=== PATIENT | female | born 1950 | race Caucasian/White ===

== ENCOUNTER 2025-07-10 19:11 | Inpatient (IN) | payer MEDICARE, OTHER, SELFPAY ==
[2025-07-10] VITALS (9 sets, daily range): BP systolic 110–159; BP diastolic 58–81; BMI 26.8
[2025-07-10] MEDS: MORPHINE SULFATE 2 MG IV ×2 (15:28→21:32)
--- NOTE | 2025-07-10 15:31 | ED.GENMED ---
History of Present Illness
General
Chief Complaint: Fall
Source: patient
Exam Limitations: none
Time Seen by Provider: 07/10/25 15:21
History of Present Illness
History of Present Illness:
Patient tripped and fell. Complaining of severe left groin pain. No other injury or trauma. No head injury neck pain chest pain shortness of breath abdominal pain etc. No thinners. No syncope. Patient is convinced she tripped and fell.
Past History
Past History
ED Past Medical History: HTN and Hypothyroidism
ED Past Surgical History: Cholecystectomy, Gynecological, Orthopedic and Other (Gastric bypass. Hernia repair)
Patient has exhibited threatening behavior?: No
Phy Exam
Physical Exam
Physical Exam:
TRAUMA EXAM:
VITAL SIGNS: Vital signs reviewed, cooperative
DISTRESS: No active disease
EYES: Pupils reactive, no orbital trauma
NOSE: No deformity or epistaxis
FACE AND SCALP: No scalp or facial trauma, external canals no blood
NECK: Supple nontender
BACK: Back nontender, pelvis stable to compression
RESPIRATORY: No distress, breath sounds normal, no tender chest wall
CARDIAC: No murmur, pulses equal and strong
ABDOMEN: Soft nontender bowel sounds normal
SKIN: Skin intact no bleeding, color normal
EXTREMITIES: Holding the left knee in a flexed position however no pain with hip rotation. Both upper extremities right lower extremity within normal limits. Good distal pulses and color to the left lower extremity. Left knee ankle tib-fib and
femur normal.
NEUROLOGICAL: Alert, oriented, no motor deficits
PSYCH: Mood affect normal
Course
Orders/Labs/Results
Orders:
Orders
07/10/25 15:25
Morphine Sulfate 2 mg .ROUTE .STK-MED ONE
07/10/25 15:27
Morphine Sulfate 2 mg IV NOW STA
07/10/25 15:29
Cardiac Monitoring- Treatment ONCE
Cardiac Monitoring- Treatment ONCE
IV Insert/Care/Rem.- Treatment PRN
Pulse Ox/cont/shift [RESP] Stat
Quantity: 1
07/10/25 15:30
Hip, Left 2-3 Views [CR Hip - LT w/wo Pel 2-3 Vw*] Urgent
Comment:
Reason For Exam: trauma
Include a pelvis x-ray?: Yes
07/10/25 15:32
Type And Crossmatch [Type+Screen] Urgent
07/10/25 15:34
Basic Metabolic Panel Urgent
Complete Blood Count/With Diff Urgent
07/10/25 16:04
ABO2 Urgent
BBK Wristband Number:
Associate notified that ABO2 has been ordered: [id number]
Date: 07/10/25
Time: 16:05
Csw ID: [id number]
07/10/25 16:25
Electrocardiogram (*1) Urgent
Reason for Study: Chest Pain
EKG- Treatment ONCE
07/10/25 16:30
CT Chest PE Study Urgent
Comment:
Reason For Exam: Back pain to chest. Trauma.
Cardiac Monitoring- Treatment ONCE
07/10/25 16:31
CT Abd/pel W Iv Cont (trauma) Urgent
Comment:
Reason For Exam: Pelvic trauma. Back pain to chest.
07/10/25 16:34
Morphine Sulfate 4 mg .ROUTE .STK-MED ONE
07/10/25 16:36
Morphine Sulfate 4 mg IV NOW STA
07/10/25 16:46
0.9% Sodium Chloride 1000 ml [Nss] 1,000 ml IV BOLUS
07/10/25 17:50
Troponin I Urgent
07/10/25 18:17
Admit/Transfer Patient As Directed
Co-Sign Provider:
Level of Care: Inpatient admission
Assign to:: Medical/Surgical
Physician / Group: Mahsa [facility]
Diagnosis: pelvic fracture, gait dysfunction
Reason for Hospitalization: pelvic fracture, gait dysfunction
Expected length of stay greater than two midnights?: Yes
ELOS- Estimated Length of Stay in days: 3
I certify the patient meets the requirements for IP care: Yes
PRN Pain Medication Management As Directed
May give lesser potent ordered pain med per pt: Yes
preference::
Protocol:: Medication orders for pain may be administered in a
manner that supports deferring to patient preference
when the pt is:
- Requesting an ordered lesser potent pain medication.
Least to most potent pain medications are defined
as: acetaminophen < NSAID < tramadol < opioids
(morphine, oxycodone, hydromorphone).
- Requesting a lesser dose of the same medication IF
ORDERED.
- Requesting a less intrusive route of administration
if both routes are prescribed by the provider (PO <
IV).
07/10/25 18:19
Code Status As Directed
Resuscitation Status: Full Code
Abnormal Lab Results
07/10/25
15:34
WBC 11.8 H 10^3/uL
(4.8-10.8)
MCH 31.4 H pg
(27.0-31.0)
RDW 14.6 H %
(11.5-14.5)
MPV 10.6 H fL
(7.4-10.4)
Abs Immat Gran (auto) 0.2 H 10^3/uL
(0-0.05)
Absolute Neuts (auto) 7.8 H 10^3/uL
(1.4-6.5)
Absolute Monos (auto) 0.9 H 10^3/uL
(0.1-0.6)
Immature Gran % 1.5 H %
(0-0.5)
Chloride 109 H mmol/L
(98-107)
Carbon Dioxide 21 L mmol/L
(22-30)
BUN 38 H mg/dl
(7-17)
Glucose 118 H mg/dl
(70-99)
07/10/25 15:34
07/10/25 15:34
Vital Signs
Initial and Last Documented VS:
Initial Vital Signs
BP
159/78
07/10/25 15:21
Last Documented Vital Signs
Temp Pulse Resp BP Pulse Ox
97.8 F 85 17 143/69 99
07/10/25 15:22 07/10/25 17:45 07/10/25 17:45 07/10/25 17:17 07/10/25 15:33
MDM/Problems Addressed
Differential Diagnosis Includes:
Suspicious of a pelvic fracture. Medically stable. Abdomen nontender. No syncope. Pain management and x-rays. Will clearly warrant admission.
*Radiology
Radiology exam reviewed: radiology read reviewed (Negative chest CT. Nondisplaced pelvic fracture)
*Pulse Oximetry
SaO2: 99
Oxygen Mode of Delivery: Room air
Patient hypoxic: no
*EKG
Interpreted by ED Provider?: Yes
Interpretation: normal
Comparison EKG: no changes
Heart Rate: 68
Rate: normal
Rhythm: sinus
[place]: normal axis
Interval: normal interval
QRS Pattern: normal QRS
Ischemia: no ischemia
*Front Desk Assistant Interpretation
Rate: normal
Interpretation: normal
Heart Rate: 72
Rhythm: sinus
*Critical Care Note
Total Time (30-74mins, 75-104mins- exclusive of procedures): Not Applicable
Update Note
Update Note:
1630.... I went to check on the patient and whether she had gone over the x-ray. She is now complaining of back pain rating to her chest. This started suddenly within the last 30 minutes. Nonpleuritic. No shortness of breath. I have elected to
change her x-rays to see CT scans. Chest CT to rule out a fat emboli and abdominal and pelvic CT for better evaluation of the pelvis and any bleeding. Trauma was also called. I will update the daughter. Despite appearing uncomfortable she
clinically has stable vital signs
ED Attending Note
-
Portions of this chart may have been created with voice recognition software.� Occasional wrong word or��sound alike� substitutions may have occurred due to the inherent limitations of voice recognition software.
Discharge Plan
Departure
Patient Disposition: Admit
Date of Disposition: 07/10/25
Time of Disposition: 17:41
Presentation/result/management discussed w/ accepting MD/DO: Hospitalist
Discharge Problem:
Fall/pelvic fracture, Back pain radiating to chest
Prescriptions:
No Action
levothyroxine [Synthroid] 175 mcg Tablet
175 mcg PO DAILY
omeprazole 20 mg Tablet,Disintegrat, Delay Rel
20 mg PO DAILY
Referrals:
Navin Valencia MD [Family Provider, Family Practice]
Interventions
Interventions:
*Risk Screen - Suicide Last Done: 07/10/25 15:19
*General Assessment Last Done: 07/10/25 15:19
*Neglect/Abuse Screening Last Done: 07/10/25 15:22
Discharge Date and Time
Print Language: [place]
[2025-07-10 15:52] LABS: Hematocrit 39.9 % (37.0-47.0); Hemoglobin 13.7 g/dL (12.0-16.0); Mean Corp Hgb Conc. 34.3 g/dL (33.0-37.0); Mean Corpuscular Volume 91.5 fL (81.0-99.0); Nucleated Red Blood Cells % 0 %; Platelet Count 246 10^3/uL (130-400); Red Cell Dist. Width 14.6 % (11.5-14.5)
[2025-07-10 16:01] LABS: Blood Urea Nitrogen 38 mg/dl (7-17); Calcium 9.8 mg/dl (8.4-10.2); Carbon Dioxide 21 mmol/L (22-30); Chloride 109 mmol/L (98-107); Glucose 118 mg/dl (70-99); Potassium 4.7 mmol/L (3.5-5.1); Sodium 136 mmol/L (135-145); eGFR > 60.00
[2025-07-10] MEDS: MORPHINE SULFATE 4 MG IV (16:36)
[2025-07-10] MEDS: NSS 1000 IV (17:28)
--- NOTE | 2025-07-10 17:44 | HPS.HSE ---
Addendum entered and electronically signed by Mahsa Mason MD 07/10/25 19:46:
This is an addendum to the H&P written by Mirlande Cortez on 07/10/2025. 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
75-year-old female past medical history of hypothyroidism, GERD presenting with trip and fall on sidewalk outside restaurant with left hip pain. �Previously had chest and back pain.
Vital signs normal. �Labs showed white cell count of 11.8.
Hip x-ray showed nondisplaced left superior pubic ramus fracture. �CT chest abdomen pelvis showed no abnormality apart from left superior pubic ramus fracture with thickening of the left obturator internus musculature which may reflect adjacent
hematoma.
Ortho recommended no intervention, weightbearing as tolerated.
PT OT. �Tylenol, morphine as needed.
Original Note:
Family Physician
-
Family Physician: Navin Valencia
Chief Complaint
-
left hip pain
History of Present Illness
Patient is a 75-year-old female with past medical history significant for hypothyroid and GERD who presented to [facility] ED for evaluation of left hip pain. Patient reports tripping and falling on left side on sidewalk outside diner. Denies any head
strike. Denies any other injuries. Patient denies any loss of consciousness, dizziness, chest pain, shortness of breath or palpitations.
Medical History
Past Medical History
Past Medical History: Reports Other
Additional Past Medical History:
hypothyroidism
GERD
Past Surgical History: Reports Other
Additional Past Surgical History:
right foot reconstructed 2014
right knee Meniscus repair
b/l knee replacements
RNY bariatric surgery
cholecystectomy
hiatal hernia repair
partial hysterectomy
Social History
Tobacco: Non-smoker
Alcohol: None
Drug: None
Living: Alone
Employment: Retired
Family History
Family History: Other (Father: brain tumor; Sister: brain tumor; Mother: CHF )
Allergies / Home Medications
Allergies reflects when Allergies were last updated in [employer].
Home Medications with original date entered in [employer]
Allergy/Medication List:
Allergies
Allergy/AdvReac Type Severity Reaction Status Date / Time
NKA - No Known Allergies Allergy Unknown Uncoded 07/10/25 15:20
Home Medications
levothyroxine 175 mcg tablet (Synthroid) 175 mcg PO DAILY 05/25/23
omeprazole 20 mg delayed release,disintegrating tablet 20 mg PO DAILY 05/25/23
Review of Systems
-
History Source: Patient
Constitutional: Reports No Symptoms
EENT: Reports No Symptoms
Respiratory: Reports No Symptoms
Cardiac: Reports No Symptoms
Abdomen/GI: Reports No Symptoms
: Reports No Symptoms
Musculoskeletal: Reports Other (left hip pain )
Skin: Reports No Symptoms
Neurological: Reports No Symptoms
Endocrine: Reports No Symptoms
Hematologic/Lymphatic: Reports No Symptoms
Psych: Reports No Symptoms
Physical Exam
Vital Signs
Vital Signs
Temp Pulse Resp BP Pulse Ox
97.8 F 69 16 159/78 99
07/10/25 15:22 07/10/25 15:22 07/10/25 15:22 07/10/25 15:22 07/10/25 15:33
Physical Exam
General: Well Developed, Well Nourished, No Apparent Distress and Conversant
HEENT: NormoCephalic, Moist mucous membranes and Atraumatic
Respiratory: Clear and Non Labored Respirations
Cardiac: S1/S2 and Regular Rhythm; No Murmur, Rub or Gallop
Breast: Deferred by me
GI: Soft, Non Tender, Non Distended and Normal Bowel Sounds
Rectal: Deferred by Provider
Genito-urinary: Deferred by me
Musculoskeletal: No Clubbing, No Cyanosis, No Edema and Other (left hip discomfort, does not worsen with ROM )
Skin: Warm and IV/Catheter Site
Neuro: Awake, AO x 3 and Nonfocal/grossly intact
Hematologic/Lymphatic: No Lymphadenopathy
Psych: Calm and Intact Judgment/Insight
Laboratory Results
-
07/10/25 15:34
07/10/25 15:34
Data Reviewed
-
CT Scan: Report Reviewed by me (abd/pel: There is a nondisplaced slightly comminuted fracture involving the left aspect of the pubis symphysis extending into the left superior pubic ramus. Thickening of the left obturator internus musculature may
reflect an adjacent hematoma.)
Medical Tests (Nuc Med, Echo, EKG etc): Report Reviewed by me (EKG: NORMAL SINUS RHYTHM)
Lab Data: Labs Reviewed by me
Impression/Plan
-
IMPRESSION/PLAN:
#left pelvic fracture 2/2 mechanical fall
EKG: NORMAL SINUS RHYTHM
Abd/Pel CT: There is a nondisplaced slightly comminuted fracture involving the left aspect of the pubis symphysis extending into the left superior pubic ramus. Thickening of the left obturator internus musculature may reflect an adjacent
hematoma.
Chest CT: 1. No evidence of pulmonary embolism.
2. No significant acute abnormality identified in the chest, as described above.
- Admit to med/surg
- Consult Orthopedics
- pain regimen
- supportive care
- Consult PT/OT
#hypothyroid
- continue levothyroxine
#GERD
- continue omeprazole
Code status: full code
DVT prophylaxis: SCDs
[2025-07-10 19:02] LABS: Troponin I < 0.012 ng/ml
[2025-07-10] MEDS: ZOFRAN 4 MG IV (22:01)
--- NOTE | 2025-07-11 01:33 | PTCARENOTE ---
received pt from ED at 2100. pt AAO x 3, pt oriented to room, bed alarm on, and call muse within reach. pt reports 8/10 pain 2 mg morphine given. 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
[2025-07-11 02:00] VITALS: BP 133/68
[2025-07-11] MEDS: MORPHINE SULFATE 2 MG IV ×2 (02:01→06:21)
[2025-07-11] MEDS: SYNTHROID 175 MCG PO (05:33)
--- NOTE | 2025-07-11 06:09 | PTCARENOTE ---
Addendum entered by Tabitha Ramos RN 07/11/25 06:40:
JEFFREY added trop to morning labs.
Original Note:
pt complaining of back pain that radiates into chest pain. completed EKG NSR. JEFFREY made aware.
[2025-07-11 07:00] VITALS: BP 125/62
--- NOTE | 2025-07-11 07:23 | W.PN.HOSP.TC ---
Addendum entered and electronically signed by Ana Garcia MD, Resident 07/11/25 15:36:
CDI
Patient tripped and fell and resulting in a hip fracture
Nondisplaced left pubic ramus fracture from a ground level fall, likely multifactorial due to age related factors
Original Note:
Today's Communication/Plan
-
Need for early ambulation
Assessment / Plan
Assessment / Plan
#HIP fracture from ground ground-level fall
- Hip x-ray nondisplaced left superior pubic ramus fracture
Mild degenerative changes of the pubis symphysis, both hips, bilateral sacroiliac joints and partially visualized lower lumbar spine.
- Abdominal abdominal pelvic CT There is a nondisplaced slightly comminuted fracture involving the left aspect of the pubis symphysis extending into the left superior pubic ramus. Thickening of the left obturator internus musculature may reflect an
adjacent hematoma.
- Reviewed by Ortho (per patient's chart) recommended no intervention, weightbearing as tolerated.
-PRN acetaminophen for pain
-PRN IV morphine for pain
-Consults PT/OT
- Recommendation noted with thanks
DISPO- SNF, continued physical therapy/ rehab
-Consult case management
# Chest pain
# Possibly musculoskeletal
- Troponin EKG chest CT showed no significant finding
Anticipated Discharge: Today
Subjective/Interval History
-
Date of Service: July 11, 2025
Patient is a 75-year-old female following a fall with complaints of left hip pain.
It was not preceded by dizziness or feeling faint
She denies any ill health or sick contacts
Denies any head strike. Denies any other injuries. Patient denies any loss of consciousness, dizziness, chest pain, shortness of breath or palpitations, not on blood thinner.
Had an episode of chest pain last night which has since resolved
Complains of some left hip pain reduced on morphine
Objective Data
-
Labs:
Laboratory Results
07/11/25
06:09
WBC Pending
Hgb Pending
Hct Pending
Plt Count Pending
Sodium Pending
Potassium Pending
Chloride Pending
Carbon Dioxide Pending
BUN Pending
Creatinine Pending
Glucose Pending
Calcium Pending
Vital Signs:
Vital Signs
Temp Pulse Resp BP Pulse Ox
97.6 F 61 16 133/68 94
07/10/25 23:35 07/11/25 02:00 07/10/25 23:35 07/11/25 02:00 07/10/25 23:35
I&O
07/10/25 07/11/25 07/12/25
06:59 06:59 06:59
Output Total 325 / 325
Balance -325 / -325
Review of Systems
-
History Source: Patient
Constitutional: Reports No Symptoms
EENT: Reports No Symptoms Reported
Respiratory: Reports No Symptoms
Cardiac: Reports No Symptoms
Abdomen/GI: Reports No Symptoms
Musculoskeletal: Reports Other
Neuro: Reports No Symptoms
Physical Exam
-
General: Well Developed and Well Nourished
HEENT: Normocephalic and Atraumatic
Respiratory: Clear to Auscultation
Cardiac: Regular Rhythm and S1/S2
GI: Soft, Nontender and Nondistended
Musculoskeletal: No Clubbing, No Cyanosis, No Edema and Other (Tenderness on passive movement, reduced range of motion on the left)
Skin: Warm and Other (Multiple bruising, on extremities)
Data Reviewed
-
CT Scan: Report Reviewed by me, Discussed with Physician and Discussed with Patient
Labs: Labs Reviewed by me, Discussed with Physician and Discussed with Patient
[2025-07-11 07:30] LABS: Hematocrit 37.0 % (37.0-47.0); Hemoglobin 12.4 g/dL (12.0-16.0); Mean Corp Hgb Conc. 33.5 g/dL (33.0-37.0); Mean Corpuscular Volume 92.3 fL (81.0-99.0); Platelet Count 200 10^3/uL (130-400); Red Cell Dist. Width 15.0 % (11.5-14.5)
[2025-07-11 07:55] LABS: Blood Urea Nitrogen 28 mg/dl (7-17); Calcium 8.9 mg/dl (8.4-10.2); Carbon Dioxide 21 mmol/L (22-30); Chloride 109 mmol/L (98-107); Estimated Creatinine Clearance 74 ml/min; Glucose 99 mg/dl (70-99); Potassium 4.8 mmol/L (3.5-5.1); Sodium 135 mmol/L (135-145); eGFR > 60.00
[2025-07-11] MEDS: PROTONIX 40 MG PO (08:17)
[2025-07-11 08:43] LABS: Troponin I < 0.012 ng/ml
[2025-07-11 09:05] VITALS: BP 138/64
[2025-07-11 09:09] VITALS: BP 138/64; PULSE 64; O2SAT 98
[2025-07-11] MEDS: ROXICODONE 10 MG PO (13:20)
--- NOTE | 2025-07-11 13:55 | CM ---
Addendum entered by Eleanor Mills RN 07/11/25 16:14:
Spoke with Cindi at [facility] . No bed available at this time.
PAC data given to patient again and she picked [facility].
Jess At [facility] has no beds till Monday and will reevaluate.
LM with [facility] requesting bed.
PLAN To Snf after located
Original Note:
Alert awake oriented lives alone in a split level home with 7 step to enter and 6 steps to to bed/bath room. 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 No adaptive devices.Consult for dc planning to SNF. PAc data
given. Pt said she [facility] to go [facility] . Will placed SNF request.
[facility] hx
Pharmacy [facility]
PCP Dr Navin Valencia
PLAN To SNF for rehab
--- NOTE | 2025-07-11 13:56 | PN.CDI ---
CDI
- -
CDI:
Physician Documentation Request
Admit Date: 07/10/25 19:11
Dear Doctor Tucker/Radha,
Please review the following and provide your response in the progress notes.
Clinical Indicators:
H+P, 07/10
#...reports tripping and falling on left side on sidewalk outside diner.
#...denies any loss of consciousness, dizziness, chest pain,
#...shortness of breath or palpitations.
PN, 07/11
#Nondisplaced left pubic ramus fracture.
#...Evaluated by orthopedics, no plans for intervention.
#HIP fracture from ground ground-level fall
#...- Hip x-ray nondisplaced left superior pubic ramus fracture
#Mild degenerative changes of the pubis symphysis, both hips,
#...bilateral sacroiliac joints and partially visualized lower lumbar spine.
Please clarify the etiology of the left pubic ramus fracture...:
Multifactorial, low level trauma and age related osteoporosis
Traumatic fracture only
Other (please specify)
Type Fracture
Age-related With current pathological fx
Drug induced (specify drug) without current pathological fx
Idiopathic
Osteoporosis of disuse
Post traumatic
Post oophorectomy osteoporosis
Use of terms such as suspected, likely, concern for, or probable (associated with a specific diagnosis that is being evaluated, monitored, or treated as if it exists) are acceptable and can be coded in the inpatient setting, when documented at the
time of discharge.
Thank you,
Shikha Montes RN BSN CCDS
CDI Specialist
Please contact via tiger text
Please use your independent medical judgment in providing your response.
--- NOTE | 2025-07-11 14:14 | CM ---
Return call received from Cyril Betancur at [facility] ([phone]), She stated that this patient is not eligible for the Medicare Waiver Program. Update to [facility].
[2025-07-11 15:00] VITALS: BP 110/60
--- NOTE | 2025-07-11 15:15 | W.DCSUMMARY ---
Documented by User: Ana Garcia MD, Resident 07/14/25 17:13
Discharge Summary
Discharge Data
Date of Admission: 07/10/25
Date of Discharge: 07/14/25
-
Pending Results: No
Hospital Course
Discharging Physician : Ana Garcia MD, Landon Perdomo MD
Disposition : SNF
Primary care physician : Navin Valencia
Principal Discharge diagnosis : Left-sided superior pubic rami fracture multifactorial likely traumatic and osteoporotic
Chronic Discharge diagnosis : Hypothyroidism GERD
Hospital Course : Patient is a 75-year-old female who presented to the [facility] ED on 07/10/2025 on account of left groin pain secondary to a fall. She said she tripped and fell on an uneven sidewalk. There was no prior history of dizziness, chest
pain or palpitation. She did not hit her head or lose consciousness following the fall.
On presentation to the ED she was in obvious distress due to pain she was holding the left hip in flexed position but there was no pain with hip rotation equal stable to compression peripheral pulses were palpable. There was left hip tenderness
worsened with movement
Investigations done [x-ray CT] showed left superior rami fracture nondisplaced with small surrounding hematoma.
She was seen by the Ortho and was admitted for conservative management
She received analgesics and physical therapy.
While on the houser she was evaluated for chest pain investigations done [troponin, EKG, chest CT] were benign pain is thought to be musculoskeletal in nature.
Following clinical improvement she has been transferred to a nursing home facility for continued care.
She has to follow-up on outpatient basis with her PCP for workup of osteoporosis and to repeat hip x-ray in 4 weeks.
Important imaging findings :
Hip x-ray 07/10/2025
The patient's known nondisplaced left superior pubic ramus fracture is not well visualized radiographically. No additional acute injuries identified. Mild degenerative changes of the pubis symphysis, both hips, bilateral sacroiliac joints and
partially visualized lower lumbar spine
Abdominal pelvic CT 07/10/2025
There is a nondisplaced slightly comminuted fracture involving the left aspect of the pubis symphysis extending into the left superior pubic ramus. Thickening of the left obturator internus musculature may reflect an adjacent hematoma
Chest CT 07/10/2025
1. No evidence of pulmonary embolism.
2. No significant acute abnormality identified in the chest, as described above.
Discharge Plan
-
Patient Disposition: Snf/SNF
Discharge Diagnosis/Procedures: Left-sided superior pubic rami fracture. Multifactorial-likely traumatic and osteoporotic
Hypothyroidism
Condition: Fair
Diet: As tolerated
Activity: With assistance and As tolerated
Driving Restrictions: Not until seen by your Dr
Bathing Restrictions: None
Others Tests: Repeat x-rays as outpatient in 4 weeks
Activity Restrictions/Additional Instructions:
Follow-up with PCP for workup of osteoporosis and treatment
Referrals:
John Burns MD [Non-Admitting Privileges, Emergency]
Navin Valencia MD [Family Provider, Family Practice]
Referral Note: Follow up with PCP in 1 week.
Evaluate for Osteoporosis
Follow up with Repeat Xray in 4 weeks
Prescriptions:
New
oxycodone 5 mg Tablet
5 mg PO Q4HPRN PRN (Reason: Mild-Mod pain) Qty: 10 0RF
polyethylene glycol 3350 17 gram Powder In Packet
17 g PO DAILY Qty: 30 0RF
senna 8.6 mg capsule
8.6 mg PO BID Qty: 60 0RF
Continued
omeprazole 20 mg Tablet,Disintegrat, Delay Rel
20 mg PO DAILY
levothyroxine 112 mcg Tablet
See Rx Instructions .ROUTE .COMPLEX
Rx Instructions:
112 mcg orally, pt. takes monday-monday only
Discharge Orders:
Discharge Patient (As Directed); Ordered 07/14/25
Ordered By: Ana Garcia
Discharge Date and Time
Discharge Date/Time: 07/14/25 15:47
Print Language: DANISH

Documented by User: Landon Perdomo MD 07/16/25 09:31
Discharge Summary
Discharge Data
Date of Admission: 07/10/25
Date of Discharge: 07/16/25
Hospital Course
Discharging Physician : Ana Garcia MD, Landon Perdomo MD
Disposition : SNF
Primary care physician : Navin Valencia
Principal Discharge diagnosis : Left-sided superior pubic rami fracture multifactorial likely traumatic and osteoporotic
Chronic Discharge diagnosis : Hypothyroidism GERD
Hospital Course : Patient is a 75-year-old female who presented to the [facility] ED on 07/10/2025 on account of left groin pain secondary to a fall. She said she tripped and fell on an uneven sidewalk. There was no prior history of dizziness, chest
pain or palpitation. She did not hit her head or lose consciousness following the fall.
On presentation to the ED she was in obvious distress due to pain she was holding the left hip in flexed position but there was no pain with hip rotation equal stable to compression peripheral pulses were palpable. There was left hip tenderness
worsened with movement
Investigations done [x-ray CT] showed left superior rami fracture nondisplaced with small surrounding hematoma.
She was seen by the Ortho and was admitted for conservative management. She received analgesics and physical therapy.
While on the houser she was evaluated for chest pain investigations done [troponin, EKG, chest CT] were benign pain is thought to be musculoskeletal in nature.
Following clinical improvement she has been transferred to a nursing home facility for continued care.
She has to follow-up on outpatient basis with her PCP for workup of osteoporosis and to repeat hip x-ray in 4 weeks.
Important imaging findings :
Hip x-ray 07/10/2025
The patient's known nondisplaced left superior pubic ramus fracture is not well visualized radiographically. No additional acute injuries identified. Mild degenerative changes of the pubis symphysis, both hips, bilateral sacroiliac joints and
partially visualized lower lumbar spine
Abdominal pelvic CT 07/10/2025
There is a nondisplaced slightly comminuted fracture involving the left aspect of the pubis symphysis extending into the left superior pubic ramus. Thickening of the left obturator internus musculature may reflect an adjacent hematoma
Chest CT 07/10/2025
1. No evidence of pulmonary embolism.
2. No significant acute abnormality identified in the chest, as described above.
Discharge Plan
-
Patient Disposition: Snf/SNF
Discharge Diagnosis/Procedures: Left-sided superior pubic rami fracture. Multifactorial-likely traumatic and osteoporotic
Hypothyroidism
Condition: Fair
Diet: As tolerated
Activity: With assistance and As tolerated
Driving Restrictions: Not until seen by your Dr
Bathing Restrictions: None
Others Tests: Repeat x-rays as outpatient in 4 weeks
Activity Restrictions/Additional Instructions:
Follow-up with PCP for workup of osteoporosis and treatment
Referrals:
John Burns MD [Non-Admitting Privileges, Emergency]
Navin Valencia MD [Family Provider, Family Practice]
Referral Note: Follow up with PCP in 1 week.
Evaluate for Osteoporosis
Follow up with Repeat Xray in 4 weeks
Prescriptions:
New
oxycodone 5 mg Tablet
5 mg PO Q4HPRN PRN (Reason: Mild-Mod pain) Qty: 10 0RF
polyethylene glycol 3350 17 gram Powder In Packet
17 g PO DAILY Qty: 30 0RF
senna 8.6 mg capsule
8.6 mg PO BID Qty: 60 0RF
Continued
omeprazole 20 mg Tablet,Disintegrat, Delay Rel
20 mg PO DAILY
levothyroxine 112 mcg Tablet
See Rx Instructions .ROUTE .COMPLEX
Rx Instructions:
112 mcg orally, pt. takes monday-monday only
Discharge Orders:
Discharge Patient (As Directed); Ordered 07/14/25
Ordered By: Ana Garcia
Discharge Date and Time
Discharge Date/Time: 07/14/25 15:47
Print Language: DANISH
--- NOTE | 2025-07-11 17:02 | CON.ORTHO ---
Consultation
-
Date/Time Consultation Performed: 07/11/25 2 pm
Consultation - Orthopedics
History
HPI: 75-year-old female present emergency department status post mechanical fall onto cement with complaints of left groin pain. She was subsequently found to have a minimally displaced left pubic rami fracture. She was admitted to the hospital
service. Orthopedics was consulted for further evaluation and treatment. This afternoon patient reports pain will localize the left groin. Reports that she has been able to bear some weight in the hospital. She denies pain in any other
extremity. She reports the pain is made worse with ambulation and direct patient affected area.
Allergies / Home Medications
Past medical history: Hypothyroidism, gerd
Past surgical history: Bilateral total knee arthroplasty, gastric bypass, cholecystectomy
Social history: Retired, non-smoker, lives alone
Family history: Not pertinent
Allergy/AdvReac Type Severity Reaction Status Date / Time
NKA - No Known Allergies Allergy Unknown Uncoded 07/10/25 15:20
�Medication �Instructions �Recorded
levothyroxine 175 mcg tablet 175 mcg PO DAILY Thyroid 05/25/23
(Synthroid)
omeprazole 20 mg delayed 20 mg PO DAILY Gastrointestinal 05/25/23
release,disintegrating tablet Issue
Vital Signs / Lab Results
Temp Pulse Resp BP Pulse Ox
98 F 66 12 110/60 93
07/11/25 15:00 07/11/25 15:00 07/11/25 15:00 07/11/25 15:00 07/11/25 15:00
07/11/25 06:09
07/11/25 06:09
10 point review systems reviewed and negative unless otherwise stated
General: Pleasant, no acute distress
Musculoskeletal left lower extremity
Skin intact, no erythema or ecchymotic staining
Leg lengths equal
Mild reproducible groin pain with logroll
There is tenderness with patient over left pubis symphysis
Minimal tenderness palpation of lateral trochanteric flare
Positive EHL, FHL, ankle dorsiflexion, plantarflexion
Sensation tact light touch on distributions distally
No other areas of bony tenderness palpation or crepitation of the bones or joints on tertiary exam
Diagnostic studies
CT scan pelvis reviewed. Radiology report reviewed. Minimally displaced superior pubic rami
Assessment / Plan
75-year-old female status post fall left-sided superior pubic rami fracture. I do long detailed discussion with the patient regarding diagnosis and treatment options. Given the stable nature of the fracture, my recommendation would be to proceed
with conservative treatment. Recommend weightbearing to patient's tolerance with a walker. Mobilize with physical therapy. Pain control. DVT prophylaxis per primary team. Explained the patient would like to see her back in the office outpatient
setting in 4 weeks repeat clinical assessment repeat radiographs.
Weightbearing as tolerated left lower extremity
PT OT
Pain control
DVT prophylaxis per primary team
Plan to follow-up outpatient 4 weeks
[2025-07-11] MEDS: ROXICODONE 5 MG PO (22:05)
[2025-07-11 23:47] VITALS: BP 125/67
[2025-07-12] MEDS: SYNTHROID PO ×2 (05:10→05:12)
[2025-07-12] MEDS: ROXICODONE 5 MG PO ×3 (05:10→19:45)
[2025-07-12 07:00] VITALS: BP 152/65
--- NOTE | 2025-07-12 07:24 | W.PN.HOSP.TC ---
Today's Communication/Plan
-
awaiting Placement at SNF
Assessment / Plan
Assessment / Plan
#HIP fracture from ground ground-level fall
Patient tripped and fell and resulting in a hip fracture
Nondisplaced left pubic ramus fracture from a ground level fall, likely multifactorial due to age related factors
Hip x-ray nondisplaced left superior pubic ramus fracture
Mild degenerative changes of the pubis symphysis, both hips, bilateral sacroiliac joints and partially visualized lower lumbar spine.
- Abdominal abdominal pelvic CT There is a nondisplaced slightly comminuted fracture involving the left aspect of the pubis symphysis extending into the left superior pubic ramus. Thickening of the left obturator internus musculature may reflect an
adjacent hematoma.
- Reviewed by Ortho (per patient's chart) recommended no intervention, weightbearing as tolerated.
-PRN acetaminophen for pain
-PRN IV morphine for pain
-PT recommended SNF
-CM working for bed Availability at SNF
# Chest pain
# Possibly musculoskeletal
- Troponin EKG chest CT showed no significant finding
Anticipated Discharge: Within 24 hours
Subjective/Interval History
-
Date of Service: July 12, 2025
Seen and examined at bedside. Complains of mild pain with ambulation otherwise no new complaints. AFVSS
Objective Data
-
Labs:
Laboratory Results
07/12/25
06:36
WBC Pending
Hgb Pending
Hct Pending
Plt Count Pending
Sodium Pending
Potassium Pending
Chloride Pending
Carbon Dioxide Pending
BUN Pending
Creatinine Pending
Glucose Pending
Calcium Pending
Vital Signs:
Vital Signs
Temp Pulse Resp BP Pulse Ox
98.4 F 66 18 125/67 96
07/11/25 23:47 07/11/25 23:47 07/11/25 23:47 07/11/25 23:47 07/11/25 23:47
I&O
07/11/25 07/12/25 07/13/25
06:59 06:59 06:59
Intake Total 600 / 600
Output Total 325 / 325
Balance -325 / -325 600 / 600
Review of Systems
-
History Source: Patient
Constitutional: Reports No Symptoms
EENT: Reports No Symptoms Reported
Respiratory: Reports No Symptoms
Cardiac: Reports No Symptoms
Abdomen/GI: Reports No Symptoms
Musculoskeletal: Reports Other (Mild hip area pain with ambulation)
Neuro: Reports No Symptoms
Physical Exam
-
General: Well Developed and Well Nourished
HEENT: Normocephalic and Atraumatic
Respiratory: Clear to Auscultation
Cardiac: Regular Rhythm and S1/S2
GI: Soft, Nontender and Nondistended
Musculoskeletal: No Clubbing, No Cyanosis, No Edema and Other (Tenderness on passive movement, reduced range of motion on the left Lower extremity)
Skin: Warm and Other (Multiple bruising, on extremities)
Data Reviewed
-
Labs: Labs Reviewed by me, Discussed with Physician and Discussed with Patient
Old Records: Reviewed
[2025-07-12] MEDS: PROTONIX 40 MG PO (08:04)
[2025-07-12 08:52] LABS: Hematocrit 34.1 % (37.0-47.0); Hemoglobin 11.1 g/dL (12.0-16.0); Mean Corp Hgb Conc. 32.6 g/dL (33.0-37.0); Mean Corpuscular Volume 94.2 fL (81.0-99.0); Platelet Count 176 10^3/uL (130-400); Red Cell Dist. Width 15.2 % (11.5-14.5)
[2025-07-12 09:09] LABS: Blood Urea Nitrogen 26 mg/dl (7-17); Calcium 8.8 mg/dl (8.4-10.2); Carbon Dioxide 24 mmol/L (22-30); Chloride 108 mmol/L (98-107); Estimated Creatinine Clearance 64 ml/min; Glucose 91 mg/dl (70-99); Potassium 4.8 mmol/L (3.5-5.1); Sodium 137 mmol/L (135-145); eGFR > 60.00
[2025-07-12 15:00] VITALS: BP 116/58
[2025-07-12 23:30] VITALS: BP 133/66
[2025-07-13] MEDS: TYLENOL 650 MG PO (00:57)
[2025-07-13] MEDS: ROXICODONE 5 MG PO ×4 (05:47→22:11)
[2025-07-13 07:00] VITALS: BP 138/67
--- NOTE | 2025-07-13 07:15 | W.PN.HOSP.TC ---
Today's Communication/Plan
-
awaiting Placement at SNF
Assessment / Plan
Assessment / Plan
#HIP fracture from ground ground-level fall
Patient tripped and fell and resulting in a hip fracture
Nondisplaced left pubic ramus fracture from a ground level fall, likely multifactorial due to age related factors
Hip x-ray nondisplaced left superior pubic ramus fracture
Mild degenerative changes of the pubis symphysis, both hips, bilateral sacroiliac joints and partially visualized lower lumbar spine.
- Abdominal abdominal pelvic CT There is a nondisplaced slightly comminuted fracture involving the left aspect of the pubis symphysis extending into the left superior pubic ramus. Thickening of the left obturator internus musculature may reflect an
adjacent hematoma.
- Reviewed by Ortho (per patient's chart) recommended no intervention, weightbearing as tolerated.
-PRN acetaminophen for pain
-PRN IV morphine for pain
-PT recommended SNF
-CM working for bed Availability at SNF
# Chest pain
# Possibly musculoskeletal
- Troponin EKG chest CT showed no significant finding
Anticipated Discharge: 24 - 48 hours
Subjective/Interval History
-
Date of Service: July 13, 2025
Seen and examined at bedside. Complains of mild pain with ambulation otherwise no new complaints. AFVSS
Objective Data
-
Labs:
Laboratory Results
07/13/25
07:06
WBC Pending
Hgb Pending
Hct Pending
Plt Count Pending
Vital Signs:
Vital Signs
Temp Pulse Resp BP Pulse Ox
98.3 F 65 16 133/66 98
07/12/25 23:30 07/12/25 23:30 07/12/25 23:30 07/12/25 23:30 07/12/25 23:30
I&O
07/12/25 07/13/25 07/14/25
06:59 06:59 06:59
Intake Total 600 / 600 1200 / 1200
Balance 600 / 600 1200 / 1200
Review of Systems
-
History Source: Patient
Constitutional: Reports No Symptoms
EENT: Reports No Symptoms Reported
Respiratory: Reports No Symptoms
Cardiac: Reports No Symptoms
Abdomen/GI: Reports No Symptoms
Musculoskeletal: Reports Other (Mild hip area pain with ambulation)
Neuro: Reports No Symptoms
Physical Exam
-
General: Well Developed and Well Nourished
HEENT: Normocephalic and Atraumatic
Respiratory: Clear to Auscultation
Cardiac: Regular Rhythm and S1/S2
GI: Soft, Nontender and Nondistended
Musculoskeletal: No Clubbing, No Cyanosis, No Edema and Other (Tenderness on passive movement, reduced range of motion on the left Lower extremity)
Skin: Warm and Other (Multiple bruising, on extremities)
Psych: Calm
Data Reviewed
-
Labs: Labs Reviewed by me, Discussed with Physician and Discussed with Patient
[2025-07-13] MEDS: PROTONIX 40 MG PO (08:01)
[2025-07-13 09:30] LABS: Hematocrit 34.3 % (37.0-47.0); Hemoglobin 11.2 g/dL (12.0-16.0); Mean Corp Hgb Conc. 32.7 g/dL (33.0-37.0); Mean Corpuscular Volume 94.2 fL (81.0-99.0); Platelet Count 172 10^3/uL (130-400); Red Cell Dist. Width 14.8 % (11.5-14.5)
[2025-07-13] MEDS: SENOKOT-S 1 TABLET PO (10:42)
[2025-07-13 12:32] VITALS: BP 150/71; PULSE 65; O2SAT 99
[2025-07-13 15:00] VITALS: BP 120/60
[2025-07-13 23:17] VITALS: BP 141/74
--- NOTE | 2025-07-14 01:01 | W.PN.UPDATE ---
Update Note
Progress Note Update
RN reports refuses heparin sq and scd for dvt prophylaxis. PT educated on ramifications of not being on dvt prophylaxis (dvt,PE).
[2025-07-14] MEDS: ROXICODONE 5 MG PO ×2 (05:24→12:50)
[2025-07-14] MEDS: SYNTHROID 112 MCG PO (05:24)
[2025-07-14] MEDS: SENOKOT-S 1 TABLET PO (05:28)
[2025-07-14 07:17] VITALS: BP 132/69
[2025-07-14 07:37] LABS: Hematocrit 36.0 % (37.0-47.0); Hemoglobin 11.7 g/dL (12.0-16.0); Mean Corp Hgb Conc. 32.5 g/dL (33.0-37.0); Mean Corpuscular Volume 95.2 fL (81.0-99.0); Platelet Count 191 10^3/uL (130-400); Red Cell Dist. Width 15.1 % (11.5-14.5)
--- NOTE | 2025-07-14 07:40 | W.PN.HOSP.TC ---
Today's Communication/Plan
-
Patient to be discharged to SNF to continue on going physical therapy
Fu on outpatient basis for osteoporosis evaluation
Assessment / Plan
Assessment / Plan
#HIP fracture from ground ground-level fall
Patient tripped and fell and resulting in a hip fracture
Nondisplaced left pubic ramus fracture from a ground level fall, likely multifactorial due to age related factors
Hip x-ray nondisplaced left superior pubic ramus fracture
Mild degenerative changes of the pubis symphysis, both hips, bilateral sacroiliac joints and partially visualized lower lumbar spine.
- Abdominal abdominal pelvic CT There is a nondisplaced slightly comminuted fracture involving the left aspect of the pubis symphysis extending into the left superior pubic ramus. Thickening of the left obturator internus musculature may reflect an
adjacent hematoma.
- Reviewed by Ortho recommended no surgical intervention, weightbearing as tolerated.
-PRN acetaminophen for pain
-PRN IV oxycodon 5mg for pain
-Currently on PT
-Recommended SNF (Patient leaves alone)
-For discharge today
# Chest pain
# Possibly musculoskeletal
- Troponin EKG chest CT showed no significant finding
#Osteoporosis
-Sustained fracture from ground level fall
-Last bone density eval >2years
- For outpatient follow up for osteoporosis with PCP
#Constipation
-Likley opiod side effect
-Has had 2 days dose of senna
-Mag Citrate PO
DISPO- SNF
Anticipated Discharge: Today
Subjective/Interval History
-
Date of Service: July 14, 2025
75-year-old female past medical history of hypothyroidism, GERD who presented with left hip pain from a fall and sustained a left superior rami fracture.
Hasn't moved her bowel in >2 days.
Given Senna X 2days
Pain is tolerable with Narcotics
Objective Data
-
Labs:
Laboratory Results
07/14/25
05:56
WBC 6.5
Hgb 11.7 L
Hct 36.0 L
Plt Count 191
Vital Signs:
Vital Signs
Temp Pulse Resp BP Pulse Ox
97.8 F 75 18 141/74 99
07/13/25 23:17 07/13/25 23:17 07/13/25 23:17 07/13/25 23:17 07/13/25 23:17
I&O
07/13/25 07/14/25 07/15/25
06:59 06:59 06:59
Intake Total 1200 / 1200 960 / 960
Balance 1200 / 1200 960 / 960
Review of Systems
-
History Source: Patient
Constitutional: Reports No Symptoms
EENT: Reports No Symptoms Reported
Respiratory: Reports No Symptoms
Cardiac: Reports No Symptoms
Abdomen/GI: Reports Other
Musculoskeletal: Reports Other (Mild hip area pain with ambulation)
Neuro: Reports No Symptoms
Physical Exam
-
General: Well Developed, Well Nourished and No Apparent Distress
HEENT: Normocephalic and Atraumatic
Respiratory: Clear to Auscultation
Cardiac: Regular Rhythm and S1/S2
GI: Soft, Nontender and Nondistended
Musculoskeletal: No Clubbing, No Cyanosis, No Edema and Other (Point tenderness above right hip, tenderness on passive movement, reduced range of motion on the left Lower extremity, improved from previous exam)
Skin: Warm and Other (Multiple bruising, on extremities)
Psych: Calm
--- NOTE | 2025-07-14 07:42 | PTCARENOTE ---
Pt refused Heparin shot & SCD overnight.Pt was explained about the medications & need of SCD. Pt still refusing.[facility] made aware.Plan of care continued.
[2025-07-14] MEDS: PROTONIX 40 MG PO (08:34)
[2025-07-14] MEDS: CITROMA 300 ML PO (12:51)
--- NOTE | 2025-07-14 13:22 | CM ---
MD indicated pt ready for discharge.
Spoke with Cindi Paiz No bed available.
Spoke with Jess at [facility]. Bed is ready today.
Covid test needed. notified.
Pt assist of two and has pain. Pt has fall history and risk.Ambulance set Medical nec form completed.
Pt agrees with discharge to [facility] today. IMM reviewed signed on chart.
Pt notified her family of discharge.
[facility]
report [phone]
fax [phone]
PLAN To [facility]
--- NOTE | 2025-07-14 13:28 | W.PN.UPDATE ---
Update Note
Progress Note Update
I saw and evaluated the patient. I reviewed the resident�s note and agree with findings and plan as documented in the resident�s note except for changes in my documentation
75-year-old with a fall
CVS: S1-S2 normal
Chest: CTA B/L
Abdomen: Soft, NT / Bowel sounds present
Extremities: No edema
tenderness left sided pelvic area
# Left-sided superior pubic rami fracture-likely traumatic and osteoporotic
Conservative treatment per orthopedics weightbearing as tolerated with a walker
Pain control
Repeat x-rays as outpatient in 4 weeks
# Hypothyroidism-continue levothyroxine
# History of gastric bypass surgery 2023/GERD-continue PPI
# DVT prophylaxis--Patient was refusing LISA and SCDS last night and made aware re the ramifications.
# Full code
D/W RN at bed side
D/W Case management
D/W Daughter
Discussed with patient regarding workup for osteoporosis as outpatient
Part of this note was created using voice recognition system. Occasional wrong word or��sound alike� substitutions may have inadvertently occurred due to the inherent limitations of voice recognition software. If noted kindly bring it to my
attention for correction.
[2025-07-14 13:45] LABS: Vitamin B12 > 1000 pg/ml (239-931)
[2025-07-14 13:50] LABS: COVID-19 Antigen Negative (Negative)
[2025-07-14 14:37] VITALS: BP 132/69
== END 2025-07-14 15:47 | DRG 544 ==
LOC: 4 EAST ACU 19:11
PROVIDERS: Nurse Practitioner Family; ADMITTING PHYSICIAN Hospitalist; ATTENDING PHYSICIAN Hospitalist; CONSULT PHYSICIAN Orthopaedic Surgery; EMERGENCY PHYSICIAN Emergency Medicine; FAMILY PHYSICIAN Family Medicine
DX: M80.0B2A Age-related osteoporosis with current pathological fracture, left pelvis, initial encounter for fracture (principal); E03.9 Hypothyroidism, unspecified; I10 Essential (primary) hypertension; M54.9 Dorsalgia, unspecified; R07.9 Chest pain, unspecified; R26.9 Unspecified abnormalities of gait and mobility; K21.9 Gastro-esophageal reflux disease without esophagitis; K59.03 Drug induced constipation; T40.2X5A Adverse effect of other opioids, initial encounter; Y92.239 Unspecified place in hospital as the place of occurrence of the external cause; W01.0XXA Fall on same level from slipping, tripping and stumbling without subsequent striking against object, initial encounter; Y93.01 Activity, walking, marching and hiking; Y92.480 Sidewalk as the place of occurrence of the external cause; Z60.2 Problems related to living alone; Z96.653 Presence of artificial knee joint, bilateral; Z98.84 Bariatric surgery status; Z90.49 Acquired absence of other specified parts of digestive tract; Z79.890 Hormone replacement therapy; Z82.49 Family history of ischemic heart disease and other diseases of the circulatory system; Z90.711 Acquired absence of uterus with remaining cervical stump; Z11.52 Encounter for screening for COVID-19
CPT/HCPCS: 71275; 73502; 74177; 80048; 82607; 84484; 85025; 85027; 86850; 86900; 86901; 87070; 87811; 93005; 96374; 96376; 97116; 97163; 97167; 97535; 99285; Q9967

== ENCOUNTER → 2025-08-21 12:48 | Outpatient (REF) | payer MEDICARE, OTHER, SELFPAY | LOC: MRI 3T 12:48 | PROVIDERS: ATTENDING PHYSICIAN Family Medicine | DX: K86.2 Cyst of pancreas (principal) | CPT/HCPCS: 74183; A9575 ==